=== PATIENT | female | born 1955 | race American Indian/Alaskan Native ===

== ENCOUNTER 2019-05-06 06:43 | Emergency (ER) | payer OTHER ==
[2019-05-06 07:05] VITALS: BP 128/61
--- NOTE | 2019-05-06 07:34 | Emergency Department Report ---
ED General Adult HPI - General Chief complaint: Pain General Stated complaint: BODY ACHES Time Seen by Provider: 05/06/19 07:17 Source: patient Mode of arrival: Ambulatory Limitations: No Limitations - History of Present Illness Initial comments: This is a 63-year-old -[place] female who presents to the emergency room with generalized pain and sluggish feeling for 2 days. Past medical history appropriate diabetes, asthma, hyperlipidemia, osteopenia, COPD, glaucoma, and cataracts. Patient states she felt weak in the leg and worried that her past 2 days. She reports aches and pains to right hand, bilateral lower extremity, bilateral shoulder blades, and jaw. Patient states she recently had carpal tunnel surgery to the right ribs in December 30 to feel aches. Patient states she recently moved here from [place]. The patient brought a copy of recent EKG, labs, seen one month ago by her PCP in [place] which were reviewed in exam room. Mild elevation of total cholesterol and A1c 5. all other labs were unremarkable. The patient denies swelling, recent injury, no warmth to the area, or bruising. Onset/Timin -: days(s) Location: neck, upper extremity, lower extremity Radiation: non-radiation Severity scale (0 -10): 8 Quality: aching Consistency: intermittent Improves with: none Worsens with: movement Associated Symptoms: denies other symptoms Treatments Prior to Arrival: none - Related Data Previous Rx's Medication Instructions Recorded Last Taken Type Capsaicin 0.075% [Zostrix Hp 1 applicatio TP TID #1 tube 05/06/19 Unknown Rx 0.075%] Naproxen [Naprosyn TAB] 500 mg PO BID PRN #20 tablet 05/06/19 Unknown Rx Allergies Allergy/AdvReac Type Severity Reaction Status Date / Time No Known Allergies Allergy Unverified 05/06/19 06:46 ED Review of Systems ROS: Stated complaint: BODY ACHES Other details as noted in HPI Constitutional: denies: chills, fever Respiratory: denies: cough, shortness of breath, wheezing Cardiovascular: denies: chest pain, palpitations Gastrointestinal: denies: abdominal pain, nausea, diarrhea Musculoskeletal: arthralgia. denies: back pain, joint swelling Skin: denies: rash, lesions Neurological: denies: headache, weakness, paresthesias Psychiatric: denies: anxiety, depression ED Past Medical Hx - Past Medical History Previous Medical History?: Yes Hx Asthma: Yes Additional medical history: Osteopenia - Surgical History Past Surgical History?: Yes Additional Surgical History: Carpal tunnel surgery right hand, Left ankle ligament and tendon repair - Social History Smoking Status: Never Smoker - Medications Home Medications: Home Medications Medication Instructions Recorded Confirmed Last Taken Type Capsaicin 0.075% [Zostrix Hp 1 applicatio TP TID #1 tube 05/06/19 Unknown Rx 0.075%] Naproxen [Naprosyn TAB] 500 mg PO BID PRN #20 tablet 05/06/19 Unknown Rx ED Physical Exam - General Limitations: No Limitations General appearance: alert, in no apparent distress - Neck Neck exam: Present: normal inspection, full ROM - Respiratory Respiratory exam: Present: normal lung sounds bilaterally. Absent: respiratory distress - Cardiovascular Cardiovascular Exam: Present: regular rate, normal rhythm. Absent: systolic murmur, diastolic murmur, rubs, gallop - GI/Abdominal GI/Abdominal exam: Present: soft, normal bowel sounds - Extremities Exam Extremities exam: Present: normal inspection, full ROM, normal capillary refill. Absent: pedal edema, joint swelling, calf tenderness - Expanded Upper Extremity Exam Left Shoulder Exam: Present: full ROM, crepidus. Absent: tenderness, swelling, abrasion, laceration, ecchymosis, deformity, dislocation, erythema, tenderness over AC joint Elbow exam: Present: normal inspection, full ROM Forearm Wrist exam: Present: normal inspection, full ROM Hand Wrist exam: Present: normal inspection, full ROM Neuro motor exam: Present: wrist extension intact, thumb opposition intact, thumb IP flexion intact, thumb adduction intact, fingers 2-5 abduction intact Neurosensory exam: Present: radial nerve intact, ulnar nerve intact, median nerve intact Vascular: Present: normal capillary refill, radial pulse Right Shoulder Exam: Present: normal inspection, full ROM. Absent: tenderness, swelling, deformity, dislocation, erythema, tenderness over AC joint Forearm Wrist exam: Present: normal inspection, full ROM Hand Wrist exam: Present: full ROM, crepidus. Absent: tenderness, swelling, abrasion, laceration, ecchymosis, deformity, erythema, amputation, nail avulsion, subungual hematoma Neuro motor exam: Present: wrist extension intact, thumb IP flexion intact, thumb adduction intact, fingers 2-5 abduction intact Neurosensory exam: Present: radial nerve intact, ulnar nerve intact, median nerve intact Vascular: Present: normal capillary refill, radial pulse - Back Exam Back exam: Present: normal inspection - Neurological Exam Neurological exam: Present: alert, oriented X3, normal gait - Psychiatric Psychiatric exam: Present: normal affect, normal mood - Skin Skin exam: Present: warm, dry, intact, normal color. Absent: rash ED Course Vital Signs 05/06/19 07:00 Temperature 98.3 F Pulse Rate 75 Respiratory 18 Rate Blood Pressure 128/61 O2 Sat by Pulse 97 Oximetry ED Medical Decision Making - Lab Data Result diagrams: 05/06/19 07:55 05/06/19 07:55 Lab Results 05/06/19 05/06/19 Range/Units 07:55 07:55 WBC 5.6 (4.5-11.0) K/mm3 RBC 4.59 (3.65-5.03) M/mm3 Hgb 12.0 (10.1-14.3) gm/dl Hct 35.4 (30.3-42.9) % MCV 77 L (79-97) fl MCH 26 L (28-32) pg MCHC 34 (30-34) % RDW 13.7 (13.2-15.2) % Plt Count 220 (140-440) K/mm3 Sodium 139 (137-145) mmol/L Potassium 4.6 (3.6-5.0) mmol/L Chloride 101.1 (98-107) mmol/L Carbon Dioxide 25 (22-30) mmol/L Anion Gap 18 mmol/L BUN 11 (7-17) mg/dL Creatinine 0.8 (0.7-1.2) mg/dL Estimated GFR > 60 ml/min BUN/Creatinine Ratio 14 % Glucose 81 (65-100) mg/dL Calcium 9.1 (8.4-10.2) mg/dL - Medical Decision Making Patient was examined by me. Vitals are normal and patient is in no acute dis tress. PMH of diabetes, asthma, hyperlipidemia, osteopenia, COPD, glaucoma, and cataracts. Obtained a BMP & CBC. All labs unremarkable. Crepitus felt on left shoulder nonfocal exam, full range of motion in all extremities without pain. Patient denies recent injury. She have a history of osteopenia without injury. I don't feel a risk of fracture so no x-rays where ordered. I feel pain may be related to osteoarthritis. Patient will be started on NSAIDs for pain. Referral to PCP for follow up. Patient will return to the ER if worsening symptoms. Patient discharged home in stable condition. Follow up with PCP in 2- 3 days. Critical care attestation.: If time is entered above; I have spent that time in minutes in the direct care of this critically ill patient, excluding procedure time. ED Disposition Clinical Impression: Osteoarthritis Qualifiers: Osteoarthritis location: multiple joints Osteoarthritis type: primary Qualified Code(s): M15.0 - Primary generalized (osteo)arthritis Joint pain Qualifiers: Joint pain location: unspecified Qualified Code(s): M25.50 - Pain in unspecified joint Disposition: TO HOME OR SELFCARE Is pt being admited?: No Does the pt Need Aspirin: No Condition: Stable Instructions: Osteoarthritis (ED), Self-Care Measures with a Chronic Disease (ED) Prescriptions: Naproxen [Naprosyn TAB] 500 mg PO BID PRN #20 tablet PRN Reason: Pain , Severe (7-10) Capsaicin 0.075% [Zostrix Hp 0.075%] 1 applicatio TP TID #1 tube Referrals: EMMANUEL HAMMER MD [Primary Care Provider] - 3-5 Days [facility] [Provider Group] - 3-5 Days [facility] [Provider Group] - 3-5 Days [facility] [Provider Group] - 3-5 Days Time of Disposition: 08:59
[2019-05-06 08:33] LABS: Hematocrit 35.4 % (30.3-42.9); Mean Corpuscular HGB Conc 34 % (30-34); Mean Corpuscular Volume 77 fl (79-97); Platelet Count 220 K/mm3 (140-440); Red Blood Count 4.59 M/mm3 (3.65-5.03); Red Cell Distribution Width 13.7 % (13.2-15.2)
[2019-05-06 08:48] LABS: BUN/Creatinine Ratio 14; Blood Urea Nitrogen 11 mg/dL (7-17); Calcium 9.1 mg/dL (8.4-10.2); Hemolysis Index 29
== END 2019-05-06 09:05 | disposition home or self-care (01) ==
LOC: ED 06:43
DX: M79.641 Pain in right hand (principal); R53.1 Weakness; M79.661 Pain in right lower leg; M79.605 Pain in left leg; M25.512 Pain in left shoulder; M25.511 Pain in right shoulder; R68.84 Jaw pain; M54.9 Dorsalgia, unspecified; E11.9 Type 2 diabetes mellitus without complications; E78.5 Hyperlipidemia, unspecified; J44.9 Chronic obstructive pulmonary disease, unspecified; Z98.890 Other specified postprocedural states; Z86.69 Personal history of other diseases of the nervous system and sense organs; M85.80 Other specified disorders of bone density and structure, unspecified site
CPT/HCPCS: 36415; 80048; 85027